=== PATIENT | female | born 1960 | race Caucasian/White ===

== ENCOUNTER 2019-04-07 13:05 | Emergency (ER) | payer MEDICAID ==
[~2019-04-07] VITALS: Ht 157.5 cm; Wt 69.9 kg
[2019-04-07 13:21] VITALS: BP_SYST 116
--- NOTE | 2019-04-07 13:26 | NUR ---
Patient to ER bed 4 to gown for evaluation. Side rails up. Report given to Akin PITTS.
[2019-04-07] MEDS ORDERED: KETOROLAC TROMETHAMINE 60 MG/2 ML VIAL IM ONE (13:30)
--- NOTE | 2019-04-07 13:30 | NUR ---
Patient is awake, alert, and oriented x4. Patient reports that she fell today and landed on her left arm. Patient presents with sharp pain from the bottom of left palm up to the elbow. Patient has pain with movement of left wrist, she unable to make a fist, and unable to lift objects.
--- NOTE | 2019-04-07 13:32 | NUR ---
ER TUNG Hernández examining patient.
[2019-04-07] MEDS ORDERED: HYDROcodone/ACETAMIN 5-325 MG TAB (NORCO/ VICODIN) PO ONE (13:45)
--- NOTE | 2019-04-07 13:54 | NUR ---
X-ray at bedside.
[2019-04-07 14:43] VITALS: BP_SYST 112
--- NOTE | 2019-04-07 14:43 | NUR ---
Patient given written and verbal discharge instructions and verbalizes understanding. ER MD discussed with patient the results and treatment provided. Patient in stable condition. ID arm band removed. Rx of naproxen given. Patient educated on pain management and to follow up with PMD. Pain Scale 0/10. Opportunity for questions provided and answered. Medication side effect fact sheet provided.
== END 2019-04-07 14:43 | disposition home or self-care (01) ==
LOC: SED 13:05
DX: S63.502A Unspecified sprain of left wrist, initial encounter (principal); I10 Essential (primary) hypertension; E11.9 Type 2 diabetes mellitus without complications; E78.5 Hyperlipidemia, unspecified; Z90.89 Acquired absence of other organs; W19.XXXA Unspecified fall, initial encounter; Y93.89 Activity, other specified; Y92.89 Other specified places as the place of occurrence of the external cause; Y99.8 Other external cause status
CPT/HCPCS: 99283

== ENCOUNTER 2020-10-02 20:56 | Emergency (ER) | payer MEDICAID ==
[~2020-10-02] VITALS: Ht 157.5 cm; Wt 65.8 kg
[2020-10-02 21:00] VITALS: BP_SYST 171
[2020-10-02] MEDS ORDERED: CEPH-568 PO (21:14)
[2020-10-02] MEDS ORDERED: SULF1TAB47 PO (21:16)
[2020-10-02 21:38] VITALS: BP_SYST 139
== END 2020-10-02 21:38 | disposition home or self-care (01) ==
LOC: SED 20:56
DX: E11.69 Type 2 diabetes mellitus with other specified complication (principal); L08.89 Other specified local infections of the skin and subcutaneous tissue; I10 Essential (primary) hypertension; Z88.0 Allergy status to penicillin; Z79.899 Other long term (current) drug therapy
CPT/HCPCS: 82962; 99283

== ENCOUNTER 2022-02-14 09:49 | Inpatient (IN) | payer MEDICAID ==
[~2022-02-14] VITALS: Ht 152.4 cm; Wt 63.5 kg
[~2022-02-14 09:49] MED LIST: ASPI-1393 PO; CEPH-568 PO; LISI20TA30 PO; SULF1TAB47 PO
[2022-02-14 09:54] VITALS: BP_SYST 110
--- NOTE | 2022-02-14 09:55 | NUR ---
Patient to ER bed 3 to gown for evaluation. Side rails up. Report given to Tip PITTS.
--- NOTE | 2022-02-14 09:56 | NUR ---
Pt coming from home ambulatory with steady gait accompanied by niece. Pt is A&Ox4. Pt c/o having cva symptoms (facial droop, confusion, and headache 5/10 pain) but currently it has subsided. No stroke symptoms present. VSS. No facial droop, no confusion, no drift present in extremities, and equeal styrength in all extremities. No chest pain and no sob. Denies n/v. 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 Bed in lowest position.
--- NOTE | 2022-02-14 09:57 | NUR ---
ER at bedside examining patient.
--- NOTE | 2022-02-14 09:58 | NUR ---
SING AT BEDSIDE FOR ASSESS. PT VSS. NAD NOTED. TIA SYMPTOMS, HEADACHE, FACIAL DROOP, CONFUSED, ALL SYMPTOMS RESOLVED NOW. PT AAOX4. AMBULATORY WITH STEADY GAIT. AWAITING ADDITIONAL ORDERS. WILL CONT TO MONITOR PT.
--- NOTE | 2022-02-14 10:03 | NUR ---
Accucheck done and results were 290. Dr. Prieto made aware.
--- NOTE | 2022-02-14 11:10 | NUR ---
TAKEN TO MRI FOR EXAMINATION, VIA WHEELCHAIR
[2022-02-14 12:44] LABS: BASOPHILS # (AUTO) 0.2 K/uL (0.0-0.2); BASOPHILS % (AUTO) 1.3 % (0.0-2.0); EOSINOPHILS # (AUTO) 0.1 K/uL (0.0-0.4); EOSINOPHILS % (AUTO) 0.4 % (0.0-4.0); HEMATOCRIT 38.2 % (36-48); HEMOGLOBIN 13.4 g/dL (12.0-16.0); LYMPHOCYTES # (AUTO) 2.7 K/uL (1.0-5.5); LYMPHOCYTES % (AUTO) 21.1 % (20.5-51.5); MEAN CORPUSCULAR HEMOGLOBIN 29 pg (27-31); MEAN CORPUSCULAR HGB CONC 35 % (32-36); MEAN CORPUSCULAR VOLUME 84 fL (79.0-98.0); MONOCYTES # (AUTO) 0.7 K/uL (0.0-1.0); MONOCYTES % (AUTO) 5.1 % (1.7-9.3); NEUTROPHILS # (AUTO) 9.3 K/uL (1.8-7.7); NEUTROPHILS % (AUTO) 72.1 % (40.0-70.0); PLATELET COUNT (AUTO) 281 K/uL (130-430); RED BLOOD CELL COUNT(AUTO) 4.57 MIL/uL (4.2-6.2); RED CELL DISTRIBUTION WIDTH 13.5 % (9.0-15.0); WHITE BLOOD COUNT (AUTO) 12.8 K/uL (4.8-10.8)
[2022-02-14 12:52] LABS: CREATININE 0.87 mg/dL (0.55-1.30); POTASSIUM 4.7 mmol/L (3.5-5.1)
[2022-02-14 12:58] LABS: ALBUMIN 2.5 g/dL (3.4-4.8); TOTAL BILIRUBIN 0.1 mg/dL (0.0-1.0)
[2022-02-14 13:11] LABS: INR 0.9 (0.8-1.2); PROTHROMBIN TIME 9.5 SECS (9.5-12.5)
--- NOTE | 2022-02-14 15:07 | NUR ---
Admit bed requested Patient will be admitted to care of Dr. FAIRCHILD. Admitted to TELE unit. Diagnosis CVA Inpatient (Yes or No) YES Observation (Yes or No) NO Orientation concerns or request close to nursing station (Yes or No) NO Covid Status NEGATIVE On vent or bipap NO Isolation requirements NO Needs a sitter NO From Home (Yes or if No enter name of facility) YES Requires Dialysis (Yes or No) NO Med Rec Completed (Yes of No) YES
[2022-02-14] MEDS ORDERED: NICOTINE 21 MG/24 HR PATCH.TD24 TD ONE (16:15)
--- NOTE | 2022-02-14 17:25 | NUR ---
SBAR TO DUARTE PITTS. ALL QUESTIONS ANSWERED. PT TO ROOM 100B TELE. VSS. NAD NOTED.
--- NOTE | 2022-02-14 17:52 | NUR ---
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
[2022-02-14 18:33] VITALS: BP_SYST 148
[2022-02-14] MEDS: ACETAMINOPHEN 325 MG TABLET PO PRN (18:59)
--- NOTE | 2022-02-14 19:30 | NUR ---
ROUNDS PATIENT RESTING COMFORTABLY IN BED, VITALS STABLE, DENIES ANY PAIN AND DISCOMFORT AT THIS TIME. ASSESSMENT DONE AND DOCUMENTED. SEE FLOWSHEET. NEEDS ATTENDED TO. SAFETY MEASURES IN PLACED. CALL LIGHT PLACED WITHIN REACH.
[2022-02-14] MEDS ORDERED: DEXTROSE 50% JECT 50 ML DISP.SYRIN IVP PRN (22:00)
[2022-02-14] MEDS ORDERED: D5W 1,000 ML IV PRN (22:00)
[2022-02-14] MEDS ORDERED: GLUCOSE (DEXTROSE) ORAL GEL -Adults PO PRN (22:00)
[2022-02-14] MEDS ORDERED: TEMAZEPAM 15 MG CAPSULE PO PRN (22:45)
[2022-02-14 22:58] LABS: CHOLESTEROL 384 mg/dL (<200); HDL CHOLESTEROL 58 mg/dL (>55); LDL CHOLESTEROL 236 mg/dL (<100); TRIGLYCERIDES 561 mg/dL (30-150)
[2022-02-14] MEDS ORDERED: lisinopriL 20 MG TABLET PO ONE (23:00)
[2022-02-15] VITALS: BP_SYST 134
--- NOTE | 2022-02-15 00:15 | NUR ---
PATIENT RESTING: Patient resting quietly. No acute distress noted. Vital signs within normal range.
[2022-02-15] MEDS: INSULIN REGULAR, HUMAN 100 UNITS/ML, 10 ML VIAL (humuLIN R) SUBCUT PRN ×4 (06:20→21:03)
--- NOTE | 2022-02-15 06:43 | NUR ---
CLOSING NOTES PATIENT AWAKE, NO COMPLAINTS AT THIS TIME, VITALS STABLE. ALL NEEDS ATTENDED TO. CALL LIGHT PLACED WITHIN REACH.
[2022-02-15 07:45] VITALS: BP_SYST 133
[2022-02-15 08:00] VITALS: BP_SYST 133
--- NOTE | 2022-02-15 08:00 | NUR ---
Received patient alert, awake, and oriented with presenting stable vital signs. Complains of headache 5 out of 10. I will provide PRN pain medication by mouth and continue to monitor response to medication.
[2022-02-15] MEDS: ACETAMINOPHEN 325 MG TABLET PO PRN ×2 (08:24→16:55)
[2022-02-15] MEDS: lisinopriL 20 MG TABLET PO SCH (09:38)
[2022-02-15] MEDS: CLOPIDOGREL BISULFATE 75 MG TABLET PO SCH (09:38)
[2022-02-15] MEDS: NICOTINE 21 MG/24 HR PATCH.TD24 TD SCH (09:38)
[2022-02-15] MEDS ORDERED: LORazepam 2 MG/ML VIAL IVP PRN (10:15)
[2022-02-15] MEDS ORDERED: ACETAMINOPHEN 325 MG TABLET PO PRN (10:15)
[2022-02-15] MEDS ORDERED: ONDANSETRON HCL 4 MG/2 ML VIAL IVP PRN (10:15)
--- NOTE | 2022-02-15 11:30 | NUR ---
Patient is ambulatory and independently able to go to the bathroom without assist. She claims weakness to her left arm but does not hinder her activities of daily living.
[2022-02-15 12:00] VITALS: BP_SYST 138
--- NOTE | 2022-02-15 13:50 | NUR ---
CONSULTATION PAGED/CALLED Reason for Consultation: []CVA Person Who was Notified: []Kelsey Consulting Physician: [] Dr Heather Ibanez Anchor Tack Puller Specialty: []Cardio Ordering Physician: []DR. Shamika Ibanez
[2022-02-15] MEDS: NORMAL SALINE 5 ML DISP.SYRIN IVF SCH ×2 (14:00→20:58)
[2022-02-15] MEDS ORDERED: NORMAL SALINE 5 ML DISP.SYRIN IVF SCH (14:00)
[2022-02-15] MEDS ORDERED: cephALEXin 500 MG CAPSULE PO SCH (15:00)
[2022-02-15 16:00] VITALS: BP_SYST 141
[2022-02-15 21:03] VITALS: BP_SYST 127
[2022-02-16] MEDS: ACETAMINOPHEN 325 MG TABLET PO PRN (04:33)
[2022-02-16] MEDS: NORMAL SALINE 5 ML DISP.SYRIN IVF SCH (06:35)
[2022-02-16] MEDS: INSULIN REGULAR, HUMAN 100 UNITS/ML, 10 ML VIAL (humuLIN R) SUBCUT PRN ×2 (06:39→12:05)
[2022-02-16 07:28] LABS: BASOPHILS # (AUTO) 0.1 K/uL (0.0-0.2); BASOPHILS % (AUTO) 0.9 % (0.0-2.0); EOSINOPHILS # (AUTO) 0.1 K/uL (0.0-0.4); EOSINOPHILS % (AUTO) 1.2 % (0.0-4.0); HEMATOCRIT 35.9 % (36-48); HEMOGLOBIN 12.5 g/dL (12.0-16.0); LYMPHOCYTES # (AUTO) 3.2 K/uL (1.0-5.5); LYMPHOCYTES % (AUTO) 32.4 % (20.5-51.5); MEAN CORPUSCULAR HEMOGLOBIN 29 pg (27-31); MEAN CORPUSCULAR HGB CONC 35 % (32-36); MEAN CORPUSCULAR VOLUME 83 fL (79.0-98.0); MONOCYTES # (AUTO) 0.6 K/uL (0.0-1.0); NEUTROPHILS # (AUTO) 5.9 K/uL (1.8-7.7); NEUTROPHILS % (AUTO) 59.5 % (40.0-70.0); PLATELET COUNT (AUTO) 263 K/uL (130-430); RED BLOOD CELL COUNT(AUTO) 4.31 MIL/uL (4.2-6.2); RED CELL DISTRIBUTION WIDTH 13.4 % (9.0-15.0); WHITE BLOOD COUNT (AUTO) 9.8 K/uL (4.8-10.8)
[2022-02-16 08:00] VITALS: BP_SYST 136
[2022-02-16 08:19] LABS: ALBUMIN 2.3 g/dL (3.4-4.8); CALCIUM 8.8 mg/dL (8.4-11.0); CREATININE 0.85 mg/dL (0.55-1.30); PHOSPHORUS 3.9 mg/dL (2.7-4.5); POTASSIUM 4.1 mmol/L (3.5-5.1); TOTAL BILIRUBIN 0.1 mg/dL (0.0-1.0)
[2022-02-16] MEDS ORDERED: TEMA15CA5 PO (08:34)
[2022-02-16] MEDS ORDERED: FENO160 PO (08:34)
[2022-02-16] MEDS ORDERED: NICO-737 TD (08:34)
[2022-02-16] MEDS ORDERED: LISI20TA30 PO (08:34)
[2022-02-16] MEDS ORDERED: LIP20 PO (08:34)
[2022-02-16] MEDS ORDERED: CLOP75TA32 PO (08:34)
[2022-02-16] MEDS: CLOPIDOGREL BISULFATE 75 MG TABLET PO SCH (08:38)
[2022-02-16] MEDS: lisinopriL 20 MG TABLET PO SCH (08:38)
[2022-02-16] MEDS: NICOTINE 21 MG/24 HR PATCH.TD24 TD SCH (08:38)
[2022-02-16] MEDS ORDERED: lisinopriL 20 MG TABLET PO SCH (09:00)
[2022-02-16] MEDS ORDERED: ATORVASTATIN 20 MG TABLET PO SCH (09:00)
[2022-02-16] MEDS ORDERED: ASPIRIN 81 MG TABLET(ECOTRIN) PO SCH (09:00)
[2022-02-16] MEDS ORDERED: FENOFIBRATE 160 MG TABLET PO SCH (09:00)
[2022-02-16 10:18] VITALS: BP_SYST 136
[2022-02-16 12:00] VITALS: BP_SYST 126
--- NOTE | 2022-02-17 15:18 | NUR ---
Disposition code 01
== END 2022-02-16 13:20 | disposition home or self-care (01) | DRG 45 ==
LOC: SED 09:49 → STU 13:51
PROVIDERS: ADMIT Preventive Medicine Preventive Medicine/Occupational Environmental Medicine; ATTEND Preventive Medicine Preventive Medicine/Occupational Environmental Medicine
DX: I63.9 Cerebral infarction, unspecified (principal); E43 Unspecified severe protein-calorie malnutrition; E11.649 Type 2 diabetes mellitus with hypoglycemia without coma; E87.1 Hypo-osmolality and hyponatremia; E88.09 Other disorders of plasma-protein metabolism, not elsewhere classified; D72.829 Elevated white blood cell count, unspecified; I10 Essential (primary) hypertension; R47.81 Slurred speech; E78.2 Mixed hyperlipidemia; Z20.822 Contact with and (suspected) exposure to COVID-19; Z79.899 Other long term (current) drug therapy; Z79.82 Long term (current) use of aspirin; Z88.0 Allergy status to penicillin
CPT/HCPCS: 36415; 70551; 80053; 80061; 82962; 83735; 84100; 85025; 85610-TC; 85730-TC; 87081; 93005; 93306; 93880; 99285; G0378; J1815

== ENCOUNTER 2023-02-08 17:07 | Emergency (ER) | payer MEDICAID ==
[~2023-02-08] VITALS: Ht 157.5 cm; Wt 61.2 kg
[~2023-02-08 17:07] MED LIST changes: +CLOP75TA32 PO; +FENO160 PO; +LIP20 PO; +NAPR-690 PO; +NICO-737 TD; +TEMA15CA5 PO
--- NOTE | 2023-02-08 17:07 | NUR ---
Patient to ER bed CH1 for evaluation. Patient evaluated by MD. Pascual PITTS managing patient care.
[2023-02-08 17:13] VITALS: BP_SYST 161; PULSE 91; RESP 18; TEMP 98.4; O2SAT 99
--- NOTE | 2023-02-08 17:58 | NUR ---
Patient awaiting RAD and lab draws at this time. Checked on patient and her family and they are awaitng tests patiently at this time.
[2023-02-08 18:13] LABS: BASOPHILS # (AUTO) 0.1 K/uL (0.0-0.2); BASOPHILS % (AUTO) 1.1 % (0.0-2.0); EOSINOPHILS # (AUTO) 0.3 K/uL (0.0-0.4); EOSINOPHILS % (AUTO) 3.5 % (0.0-4.0); HEMATOCRIT 34.2 % (36-48); HEMOGLOBIN 11.3 g/dL (12.0-16.0); LYMPHOCYTES # (AUTO) 3.2 K/uL (1.0-5.5); MEAN CORPUSCULAR HEMOGLOBIN 29 pg (27-31); MEAN CORPUSCULAR HGB CONC 33 % (32-36); MEAN CORPUSCULAR VOLUME 87 fL (79.0-98.0); MONOCYTES # (AUTO) 0.6 K/uL (0.0-1.0); MONOCYTES % (AUTO) 7.5 % (1.7-9.3); NEUTROPHILS % (AUTO) 48.9 % (40.0-70.0); PLATELET COUNT (AUTO) 291 K/uL (130-430); RED BLOOD CELL COUNT(AUTO) 3.94 MIL/uL (4.2-6.2); RED CELL DISTRIBUTION WIDTH 14.1 % (9.0-15.0); WHITE BLOOD COUNT (AUTO) 8.2 K/uL (4.8-10.8)
[2023-02-08 18:26] LABS: ALANINE AMINOTRANSFERASE 14 U/L (12-78); ALBUMIN 2.8 g/dL (3.4-4.8); ANION GAP 7 (5-15); ASPARTATE AMINOTRANSFERASE 17 U/L (10-37); CHLORIDE 104 mmol/L (98-107); CREATININE 0.92 mg/dL (0.55-1.30); GFR AFRICAN AMERICAN 80 mL/min (>90); GLUCOSE 83 mg/dL (74-106); TOTAL BILIRUBIN 0.2 mg/dL (0.0-1.0); UREA NITROGEN, BLOOD 22 mg/dL (8-21)
--- NOTE | 2023-02-08 18:36 | NUR ---
Spoke to Dr. Adams and he stated he is awaiting CT results to come back. Advised family of status and thye said they will wait to see results.
[2023-02-08] MEDS ORDERED: KETOROLAC TROMETHAMINE 15 MG VIAL IM ONE (19:15)
--- NOTE | 2023-02-08 19:41 | NUR ---
assumed pt care
--- NOTE | 2023-02-08 19:41 | NUR ---
pt bib daughter. c/o R lower rib pain. Pt states to have pain for months but pain became ubearable saturday night. Pt denies trauma to area. Pt states pain 10/10. pt states activity makes pain worse. Pt able to lift up R arm with full ROM. Pt seen grabbing R lower rib after. No visible trauma to area. Pt VSS. Afebrile. Skin dry and intact. AAOX4. Pt speaking full complete sentences. pt in bed with side rails up. daughter at bedside
[2023-02-08] MEDS ORDERED: POLY119P3 PO (20:11)
[2023-02-08] MEDS ORDERED: DICY10CA13 PO (20:11)
--- NOTE | 2023-02-08 20:21 | NUR ---
Patient given written and verbal discharge instructions and verbalizes understanding. ER MD discussed with patient the results and treatment provided. Patient in stable condition. ID arm band removed. Rx of DICYCLOMINE CLEARLAX given. Patient educated on pain management and to follow up with PMD. Pain Scale 3/10 Opportunity for questions provided and answered. Medication side effect fact sheet provided.
[2023-02-08 20:22] VITALS: BP_SYST 161; PULSE 91; RESP 18; TEMP 98.4; O2SAT 99
== END 2023-02-08 20:21 | disposition home or self-care (01) ==
LOC: SED 17:07
DX: R10.11 Right upper quadrant pain (principal); R19.7 Diarrhea, unspecified; E11.9 Type 2 diabetes mellitus without complications; I10 Essential (primary) hypertension; E78.5 Hyperlipidemia, unspecified; Z88.0 Allergy status to penicillin; Z79.899 Other long term (current) drug therapy
CPT/HCPCS: 99285; 74176; 71045; 80053; 82550; 85025; 84484; 36415; 76376; 96372; 82397; J1885